=== PATIENT | female | born 1995 | race Caucasian/White ===

== ENCOUNTER 2017-01-15 10:49 | Emergency (ER) | payer SELFPAY ==
[2017-01-15 11:02] VITALS: BP 124/77; PULSE 88; TEMP 98.1; BMI 38.5
--- NOTE | 2017-01-15 11:46 | PDOC ---
History of Present Illness - General Chief Complaint: Cold Symptoms Stated Complaint: cold, cough, congestion, headache Time Seen by Provider: 01/15/17 11:10 History Source: Patient Exam Limitations: No Limitations - History of Present Illness Initial Comments: 01/15/17 14:54 Patient came to her department for evaluation for recurrent congestion, cough, runny nose, and sore throat pain. [facility] moved from [place] 3 months ago and since then has had multiple URIs, some episode of strep throat where she was treated with antibiotics with resolve. [facility] approximately 3 days ago had a recurrence of runny nose and congestion without fevers. Denies earache or sore throat. Has been using [id number] medications NyQuil and DayQuil with some minimal resolved. Timing/Duration: reports: changing over time, intermittent Severity: reports: mild, moderate Associated Symptoms: reports: cough (nonproductive), fever/chills, nasal congestion, nasal drainage. denies: earache, sore throat, wheezing Past History - Travel Traveled outside of the country in the last 30 days: No Close contact w/someone who was outside of country & ill: No - Past Medical History Allergies/Adverse Reactions: Allergies Allergy/AdvReac Type Severity Reaction Status Date / Time No Known Allergies Allergy Verified 01/15/17 10:53 Home Medications: Ambulatory Orders NK [No Known Home Medication] 01/15/17 Other medical history: denies - Psycho/Social/Smoking Cessation Hx Suicidal Ideation: No Smoking History: Never smoked Information on smoking cessation initiated: No Hx Alcohol Use: No Drug/Substance Use Hx: No Substance Use Type: None Review of Systems - Review of Systems Able to Perform ROS?: Yes Is the patient limited [place]ish proficient: Yes Constitutional: Yes: Symptoms Reported, See HPI, Malaise. No: Chills, Fever, Loss of Appetite HEENTM: Yes: Symptoms Reported, See HPI, Nose Congestion, Throat Pain ( sometimes in the morning with posterior sinus drainage). No: Throat Swelling, Mouth Pain, Mouth Swelling Respiratory: Yes: Symptoms reported, See HPI. No: Cough, Shortness of Breath, Wheezing ABD/GI: Yes: See HPI. No: Symptoms Reported All Other Systems: Reviewed and Negative *Physical Exam - Vital Signs Last Vital Signs Temp Pulse Resp BP Pulse Ox 98.1 F 88 18 124/77 98 01/15/17 10:51 01/15/17 10:51 01/15/17 10:51 01/15/17 10:51 01/15/17 10:51 - Physical Exam General Appearance: Yes: Nourished, Appropriately Dressed. No: Apparent Distress HEENT: positive: TR, Normal ENT Inspection, TMs Normal, Pharynx Normal, Nasal Congestion, Rhinorrhea (clear). negative: Pharyngeal Erythema (cobblestone appearance consistent with an ALLERGIC type nasal drainage that is clear), TM Bulging, TM Dull, TM Erythema Neck: positive: Tender, Supple Respiratory/Chest: positive: Lungs Clear, Normal Breath Sounds (no wheezing or retractions) Musculoskeletal: negative: Normal Inspection Extremity: positive: Normal Capillary Refill, Normal Inspection Integumentary: positive: Normal Color, Dry, Warm Progress Note - Progress Note Progress Note: ALLERGIC rhinitis, will treat with antihistamines and decongestants as patient has no evidence of bacterial infection. Encouraged follow-up with PMD for possible skin testing for ALLERGIES *DC/Admit/Observation/Transfer Diagnosis at time of Disposition: Allergic rhinitis Qualifiers: Allergic rhinitis seasonality: unspecified seasonality Allergic rhinitis trigger: unspecified Qualified Code(s): J30.9 - Allergic rhinitis, unspecified - Discharge Dispostion Disposition: HOME Condition at time of disposition: Stable Admit: No - Patient Instructions Printed Discharge Instructions: DI for Allergic Rhinitis Additional Instructions: Rest, drink lots of fluids: Teas, water, soups Saltwater gargles. Consider humidifier in room at night Steamy showers/seem to face break up mucus Avoid contact with allergens, exposure to pollens, close windows on a windy day Lots of handwashing and good hygiene Continue [id number] medications for symptomatic relief- may use allergic eyedrops for itching I Continue antihistamines daily until pollen season is over; Zyrtec, Claritin, Jaz during the daytime and Benadryl at nighttime as will make sleepy Tylenol or Motrin for fever and pain Followup with private physician in one to 2 days as needed Consider following up with an visually impaired teacher/shank rander for skin testing and possible allergy shots Return to emergency department for worsened symptoms, fevers, dehydration - Post Discharge Activity Work/School Note: Back to Work
== END 2017-01-15 11:55 | disposition home or self-care (01) ==
LOC: JERFT 10:49
DX: J30.9 Allergic rhinitis, unspecified (principal)
CPT/HCPCS: 99281-25